=== PATIENT | male | born 1995 | race Caucasian/White ===

== ENCOUNTER 2017-01-04 16:28 | Emergency (ER) | payer BC ==
--- NOTE | 2017-01-04 18:24 | UC ---
UC General HPI - HPI Summary HPI Summary: The patient comes in today for: 1. Left foot glass foreign body: Onset: 2-3 weeks ago. Palliative/provocative: Pressing on the area makes it more painful. Quality: sharp Region: sole of the right foot. Severity: No pressure: 0/10 pain. With pressing 7/10 pain. Time: Comes and goes. Associated symptoms: Discharge: None. Tetanus: It has been present in the last 10 years. He dropped a bottle and while he was trying to clean up the mess, he stepped on glass. 2. Sliver in the right Ring finger Onset: 6 days ago. Palliative/provocative: Pressure makes it more painful as well as flexion. Quality: Sharp Region: Volar aspect of the middle phalanx. Severity: 0/10 Time: Constant. Associated symptoms: Event: He does not remember getting anything in the finger, but he remembers trying to get it out with a pair of tweezers. * * - History of Current Complaint Chief Complaint: UCUpperExtremity Stated Complaint: SWOLLEN FINGER W SLIVER,GLASS IN FOOT Time Seen by Provider: 01/04/17 18:16 Hx Obtained From: Patient - Allergy/Home Medications Allergies/Adverse Reactions: Allergies Allergy/AdvReac Type Severity Reaction Status Date / Time Sulfamethoxazole Allergy Severe Rash Verified 01/04/17 16:47 w/Trimethoprim [From Bactrim] PMH/Surg Hx/FS Hx/Imm Hx Previously Healthy: No - ADHD. Endocrine History Of: Denies: Diabetes, Thyroid Disease, Hyperthyroidism, Hypothyroidism, Dyslipidemia Cardiovascular History Of: Denies: Cardiac Disorders, Hypertension, Pacemaker/ICD, Myocardial Infarction , Congestive Heart Failure, Atrial Fibrillation, Deep Vein Thrombosis, Bleeding Disorders Respiratory History Of: Denies: COPD, Asthma, Bronchitis, Pneumonia, Pulmonary Embolism GI/ History Of: Denies: Gastroesophageal Reflux, Ulcer, Gastrointestinal Bleed, Gall Bladder Disease, Kidney Stones, Diverticulitis, Renal Disease, Urosepsis Neurological History Of: Denies: TIA, CVA, Dementia, Seizures, Migraine Psychological History Of: Denies: Anxiety, Depression, Bipolar Disorder, Schizophrenia, Post Traumatic Stress Disorder Cancer History Of: Denies: Lung Cancer, Colorectal Cancer, Breast Cancer Other History Of: Negative For: HIV, Hepatitis B, Hepatitis C, Anticoagulant Therapy - Surgical History Surgical History: Yes Surgery Procedure, Year, and Place: arm, knee surgeries in past. abcess I+D - Family History Known Family History: Positive: Hypertension Negative: Cardiac Disease - Social History Occupation: Employed Full-time Alcohol Use: Occasionally Substance Use Type: Marijuana Smoking Status (MU): Former Smoker Review of Systems Constitutional: Negative Skin: Rash Eyes: Negative Respiratory: Negative Cardiovascular: Negative Gastrointestinal: Negative Genitourinary: Negative Musculoskeletal: Myalgia All Other Systems Reviewed And Are Negative: Yes Physical Exam Triage Information Reviewed: Yes Appearance: Well-Appearing, No Pain Distress, Well-Nourished Vital Signs: Initial Vital Signs Temp 97.0 F 01/04/17 16:42 Pulse 74 01/04/17 16:42 Resp 12 01/04/17 16:42 BP 117/56 01/04/17 16:42 Pulse Ox 98 01/04/17 16:42 Vital Signs Reviewed: Yes Eyes: Positive: Conjunctiva Clear. Negative: Discharge ENT: Positive: Hearing grossly normal. Negative: Pharyngeal erythema, Nasal congestion, Nasal drainage, TM bulging, TM dull, TM red, Tonsillar swelling, Tonsillar exudate Dental: Negative: Gross Decay/Caries @, Dental Fracture @ Neck: Positive: Supple, Nontender, No Lymphadenopathy. Negative: Nuchal Rigidity Respiratory: Positive: Lungs clear, No respiratory distress, No accessory muscle use. Negative: Rhonchi, Wheezing Cardiovascular: Positive: RRR, No Murmur Abdomen Description: Positive: Nontender, No Organomegaly, Soft. Negative: Distended, Guarding Musculoskeletal: Positive: Strength Intact, ROM Intact, Other: - Right ring finger. The volar aspect of the middle phalanx shows edema, some erythema and a possible early hall. The right foot reveals a possible healed puncture wound but no discharge, erythema or edema at the side of the possible puncture area (sole aspect of the proximal head of the 5th metatarsal. Neurological: Positive: Alert, Muscle Tone Normal Psychological: Positive: Normal Response To Family, Age Appropriate Behavior, Consolable Skin: Positive: rashes. Negative: breakdown Course/Dx - Course Course Of Treatment: Right ring finger: After the site in question (volar middle phalanx) was anesthetized with 2% lidocaine w/o epi, the callus of the entry site was removed. Pus came out, but no foreign body seen. The cavity was probed and no FB seen or felt. The area was dressed. right foot: AFter the site in question was anesthetized with 2% lidocaine with epi, the entry wound callus was shaved off and the entry trajectory was followed to normal tissue. No fb seen or felt. The wound was dressed. - Differential Dx - Multi-Symptom Provider Diagnoses: Abscess of the right ring finger of the middle phalanx. Puncture wound of the right foot Discharge - Discharge Plan Condition: Stable Disposition: HOME Patient Education Materials: Abscess (ED) Referrals: Shadi Gallegos MD [Primary Care Provider] - 1 Week (Please see your primary care provider in a week to see how well you are doing. If you get worse, please be seen sooner in the ER or through us. If you continue to improve and do well, you won't need the follow up evaluation. Please take all the antibiotic until gone, unless you have side effects that are worrisome.) Additional Instructions: Please hot soak your finger for 20 minutes 4-5 times a day until healed.
[2017-01-04] MEDS ORDERED: LIDOCAINE 2% INJ ONE (18:33)
[2017-01-04] MEDS ORDERED: Lidocaine 2% W/EPI 1:100,000* 20 ML MDV INJ ONE (18:33)
[2017-01-04] MEDS ORDERED: Lidocaine 2% PF* 10 ML AMP INJ ONE (18:44)
--- NOTE | 2017-01-04 18:53 | RAD ---
INDICATION: Evaluate for foreign body COMPARISON: None TECHNIQUE: AP, lateral, and oblique views were obtained. FINDINGS: There is no fracture or foreign body. There is mild diffuse soft tissue swelling. IMPRESSION: NO FRACTURE OR FOREIGN BODY.
--- NOTE | 2017-01-04 18:54 | RAD ---
INDICATION: Evaluate for foreign body COMPARISON: None TECHNIQUE: AP, lateral, and oblique views were obtained. FINDINGS: The bony structures, joint spaces, and soft tissues are normal for age. IMPRESSION: NO FRACTURE OR FOREIGN BODY.
[2017-01-04] MEDS ORDERED: Lidocaine 2% PF* 5 ML VIAL ONE (19:00)
[2017-01-04 20:29] VITALS: BP 135/70
== END 2017-01-04 20:25 | disposition home or self-care (01) ==
LOC: UCEAST 16:28
DX: L02.511 Cutaneous abscess of right hand (principal); S91.331A Puncture wound without foreign body, right foot, initial encounter; F12.90 Cannabis use, unspecified, uncomplicated; F17.210 Nicotine dependence, cigarettes, uncomplicated; Z88.3 Allergy status to other anti-infective agents; W25.XXXA Contact with sharp glass, initial encounter; W45.8XXA Other foreign body or object entering through skin, initial encounter
CPT/HCPCS: 73140; 99212; G0463; J2001